=== PATIENT | female | born 1960 | race Caucasian/White ===

== ENCOUNTER 2017-05-30 05:30 | Observation (INO) | payer OTHER ==
[~2017-05-30] VITALS: Ht 157.5 cm; Wt 62.3 kg
[~2017-05-30 05:30] MED LIST: ASPI81TA17 PO; BUPR150CR PO; CARDCAP2 PO; CHOL10008 PO; FOLI800T PO; GARL1000 PO; METH2.5T PO; METO1TAB42 PO; MIRA3350 PO; MOBI7.5T PO; PLAQ200T PO; PRED1 PO; PRIL20TA2 PO; VALA1TAB PO
[2017-05-30] MEDS ORDERED: SODIUM CHLORID 0.9% 500 ML IV PRN (06:15)
[2017-05-30] MEDS ORDERED: POVIDONE IODINE 5% (ANTISEPSIS KIT) 4 APPLICATIONS EACH NARE PRN (06:15)
[2017-05-30] MEDS ORDERED: CHLORHEXIDINE GLUCONATE 2 % 1 PACK (2 CLOTHS) TOPICAL PRN (06:15)
[2017-05-30] MEDS ORDERED: LACTATED RINGER'S 1000 ML IV PRN (06:15)
[2017-05-30] MEDS ORDERED: METOPROLOL TARTRATE 25 MG TAB PO PRN (06:15)
[2017-05-30] MEDS ORDERED: ceFAZolin INJ 1,000 MG VIAL ONE (06:33)
[2017-05-30] MEDS ORDERED: SODIUM CHLORIDE 0.9% INJ 100 ML ONE (06:33)
[2017-05-30] MEDS ORDERED: ACETAMINOPHEN 1000 MG/100 ML 0 ML IV ONE (06:58)
[2017-05-30] MEDS ORDERED: GELFOAM SIZE 100 ONE (06:59)
[2017-05-30] MEDS ORDERED: BACITRACIN TOP OINT 15 GM TUBE ONE (06:59)
[2017-05-30] MEDS ORDERED: GELATIN 12 MM/7 MM FOAM ONE (06:59)
[2017-05-30] MEDS ORDERED: LIDOCAINE HCL 2% 50 ML VIAL ONE (06:59)
[2017-05-30] MEDS ORDERED: DEXAMETHASONE SOD PHOS 4 MG/ML VIAL IV ONE (12:00)
[2017-05-30] MEDS ORDERED: ePHEDrine/NS 25 MG/5 ML SYRINGE IV ONE (12:00)
[2017-05-30] MEDS ORDERED: PHENYLEPH/NS 1000 MCG/10 ML SYR IV ONE (12:00)
[2017-05-30] MEDS ORDERED: ONDANSETRON HCL 4 MG/2 ML VIAL IV ONE (12:00)
[2017-05-30] MEDS ORDERED: SODIUM CHLORIDE 0.9% INJ 500 ML IV ONE (12:00)
[2017-05-30] MEDS ORDERED: ceFAZolin INJ 1,000 MG VIAL IV ONE ×2 (12:00)
[2017-05-30] MEDS ORDERED: PROPOFOL 200 MG/20 ML AMP IV ONE (12:00)
[2017-05-30] MEDS ORDERED: LIDOCAINE HCL 1% PF 5 ML SYRINGE OTHER ONE (12:00)
[2017-05-30] MEDS ORDERED: LACTATED RINGER'S 1000 ML INJ 2,000 ML IV ONE (12:00)
[2017-05-30] MEDS ORDERED: PHENYLEPHRINE HCL 10 MG/ML VIAL IV ONE (12:00)
[2017-05-30] MEDS ORDERED: DO NOT ADM ANY ANTICOAGULANT DRUGS PRN (16:02)
[2017-05-30] MEDS ORDERED: *ONDANSETRON 4 MG VIAL PERIprocedural Use ONLY ONE (16:04)
[2017-05-30] MEDS ORDERED: *PROMETHAZINE 25 MG/ML VIAL PERIprocedural use ONLY ONE (16:08)
[2017-05-30] MEDS ORDERED: MIDAZOLAM HCL 2 MG/2 ML VIAL ONE (16:13)
[2017-05-30] MEDS: D5-1/2 NS + KCL 20 MEQ INJ 1,000 ML IV SCH (16:30)
[2017-05-30] MEDS ORDERED: D5-1/2 NS + KCL 20 MEQ INJ 1,000 ML ONE (16:31)
[2017-05-30] MEDS ORDERED: MORPHINE SULFATE 2 MG/ML INJ IV PRN (17:00)
[2017-05-30] MEDS ORDERED: ONDANSETRON HCL 4 MG/2 ML VIAL IV PUSH PRN (17:00)
[2017-05-30 17:50] VITALS: BP 104/50; PULSE 83; RESP 19; TEMP 95.6; O2SAT 99
[2017-05-30 20:00] VITALS: BP 108/59; PULSE 78; RESP 18; TEMP 97.5; O2SAT 100
[2017-05-30] MEDS: ACETAMINOPHEN/HYDROcodone 325 MG/5 MG TAB PO PRN (20:31)
[2017-05-31] VITALS: BP 96/52; PULSE 95; RESP 16; TEMP 98.2; O2SAT 98
[2017-05-31] MEDS: D5-1/2 NS + KCL 20 MEQ INJ 1,000 ML IV SCH (03:00)
--- NOTE | 2017-05-31 03:05 | MP ---
cc: An Botello MD DATE OF OPERATION: 05/30/2017 PREOPERATIVE DIAGNOSES: Rheumatoid arthritis right hand and wrist, mucous cyst right index finger. POSTOPERATIVE DIAGNOSE: Rheumatoid arthritis right hand and wrist, mucous cyst right index finger. PROCEDURES: 1. Right wrist fusion using distal radius bone graft as well as allograft using a [employer] fusion plate. 2. Posterior interosseous neurectomy right wrist. 3. Right thumb metacarpophalangeal joint fusion using a Synthes plate as well as again distal radius autograft. 4. Excision mucous cyst right index finger. ANESTHESIA: General and local. TOURNIQUET TIME: Two hours at 250 mmHg, then deflated for over an hour, then reinflated for an additional hour. IMPLANTS: 1. [employer] wrist fusion plate. 2. One Synthes variable angle 1.5 mm plate over the right thumb. INDICATIONS FOR PROCEDURE: Herminia Urias is a pleasant 56-year-old right hand dominant female, prior patient of Dr. Roberson's with rheumatoid arthritis with worsening pain and deformity over the right wrist and thumb. I have been following this for the past 2 years. The patient requested surgical intervention. She requested intervention over the thumb and wrist as well as the index finger mucous cyst. She understands she is at risk for need for additional procedure including possible eventual CMC arthroplasty. She understands she is at risk for wound complications, infection, nonunion, malunion, need for additional surgeries, need for hardware removal, stiffness, pain, paresthesias, recurrence of the mucous cyst, tendon rupture and she elected to procedure. DESCRIPTION OF PROCEDURE: The patient was identified in the preoperative holding area and the correct extremity was marked. The patient was taken to the operating room where anesthesia was induced. Right upper extremity was prepped and draped in normal sterile fashion. Tourniquet was inflated to 250 mmHg for 2 hours. A longitudinal incision was made over the dorsum of the wrist. The extensor retinaculum was step cut. Care was taken to protect the extensor tendons of all compartments. Posterior interosseous neurectomy was performed. The wrist capsule was identified and incised. There was significant destruction of all of the carpal bones. This was confirmed under fluoroscopy. The lunate was significantly ulnarly and dorsally displaced. Osteotomes were used to remove the remaining cartilage back to healthy bleeding bone. Combination of osteotomes and rongeurs were used. The decision was made to perform a proximal row carpectomy and use the bones as bone graft due to again the significant displacement of the lunate. This was mixed with Vivex allograft bone graft. The bone graft was placed in place and then a short arc [employer] wrist fusion plate was placed over the trapezoid and capitate and held into position and then with the wrist in slight ulnar deviation and extension, this was again placed over the radius. This was confirmed under fluoroscopy to be in good position. A combination of nonlocking and locking screws were placed. This had good alignment of the wrist. Additional bone graft was placed. The extensor retinaculum was repaired. The skin was closed with Monocryl and nylon. Attention was then turned to the thumb. The tourniquet had been deflated for closure of the wrist and then was reinflated over the thumb. A longitudinal incision was made over the right thumb MP joint. The extensor tendon was incised. The joint was identified and incised and again there was significant destruction of the right thumb MP joint. Again this was debrided back using combination of osteotomes and rongeurs. A 1.5 mm Synthes plate was bent at a slight flexion angle. This was then held in place with K-wires and a combination of locking and nonlocking screws and confirmed under fluoroscopy to be in good alignment with compression. Again bone graft was placed including some distal radius bone graft as well as the Vivex allograft. The extensor tendon was then repaired and the skin was closed with Monocryl and nylon. X-rays of the CMC joint showed good appearance of the joint, although again, I will discuss with the patient she may eventually require CMC arthroplasty in the future. Finally, attention was turned to the right index finger mucous cyst over the ulnar border of the finger. Care was taken to protect the extensor tendon. The osteophyte was debrided and the joint was irrigated. The skin was closed with nylon. Tourniquet was released. The patient had less than 2 second capillary refill to all the fingers and good position of the thumb and the wrist. Approximately 10 mL of 2% lidocaine with no epinephrine was used for local anesthesia. Anesthesia declined performing a regional block. I discussed with the patient and her mother following the procedure and they felt more comfortable having the patient stay overnight for observation for pain control and be discharged tomorrow. She will elevate the hand. In the recovery room she had good range of motion of the fingers and denied any paresthesias. She is to be nonweightbearing over the wrist. I will order a bone stimulator. She should be off work at this time. Again, she understands she is at risk for nonunion, malunion, need for hardware removal, specifically due to her rheumatoid arthritis. Again, I would like to order a bone stimulator. An Botello MD [facility]/rt , 11:26 PM , 03:03 AM HERMELINDA
[2017-05-31 04:00] VITALS: BP 105/54; PULSE 98; RESP 16; TEMP 98; O2SAT 97
[2017-05-31] MEDS: ACETAMINOPHEN/HYDROcodone 325 MG/5 MG TAB PO PRN (06:09)
[2017-05-31 07:42] VITALS: BP 108/57; PULSE 91; RESP 18; TEMP 97.3; O2SAT 98
[2017-05-31 10:02] VITALS: O2SAT 98
--- NOTE | 2017-06-02 14:13 | RADRPT ---
EXAM DATE/TIME: 05/30/2017 09:21 [facility] COMPARISON: No previous studies available for comparison. INDICATIONS : ORIF right wrist. MEDICAL HISTORY : None. SURGICAL HISTORY : None. ENCOUNTER: Initial ACUITY: 1 day PAIN SCORE: Non-responsive. LOCATION: Right wrist FINDINGS: Plate with screws is seen bridging the distal radius through the distal carpal row. Alignment is sheba tomic in the AP and lateral projection. Lunate has been surgically resected.. CONCLUSION: Fixation as above Roel Fischer MD FACR on June 02, 2017 at 14:11 Board Certified Radiologist. This report was verified electronically.
== END 2017-05-31 10:20 | disposition home or self-care (01) ==
LOC: HSDC 05:30 → N06B 17:43
PROVIDERS: ADMIT Orthopaedic Surgery; ATTEND Orthopaedic Surgery
DX: M06.841 Other specified rheumatoid arthritis, right hand (principal); M06.831 Other specified rheumatoid arthritis, right wrist; M71.341 Other bursal cyst, right hand; M25.741 Osteophyte, right hand; I10 Essential (primary) hypertension; F32.9 Major depressive disorder, single episode, unspecified; Z79.899 Other long term (current) drug therapy; Z79.82 Long term (current) use of aspirin
CPT/HCPCS: 01830; 25999; 26115; 26852; 73110; 76000; C1713; G0378; J0690; J1100; J2250; J2370; J2405; J2550; J3010; J3480; J7120; J0131